=== PATIENT | male | born 1950 | race Caucasian/White ===

== ENCOUNTER 2025-01-10 06:28 | Day surgery (SDC) | payer OTHER ==
[~2025-01-10] VITALS: Ht 154.9 cm; Wt 46.4 kg
[~2025-01-10 06:28] MED LIST: ASPI-1444 PO; KETO-100 OU
[2025-01-10] MEDS ORDERED: LIDOCAINE 4% 50 ML SOLUTION TP ONE (06:29)
[2025-01-10] MEDS ORDERED: LIDOCAINE 2% 11 ML JELLY TP ONE (06:29)
[2025-01-10] MEDS ORDERED: ALBUTEROL SULFATE 2.5 MG/0.5 ML NEB SOLUTION NEB ONE (06:29)
[2025-01-10] MEDS ORDERED: BENZOCAINE 20% 50 MCG/SPRAY 57 GM TP ONE (06:29)
[2025-01-10] MEDS ORDERED: SODIUM CHLORIDE 0.9% 1,000 ML ONE (06:46)
[2025-01-10 08:05] LABS: GLUCOMETER DEV NAME(LOC) SDS.; GLUCOSE,POINT OF CARE 143 MG/DL (70-110)
[2025-01-10] MEDS ORDERED: FentaNYL CITRATE PF 100 MCG/2 ML VIAL ONE (08:07)
[2025-01-10] MEDS ORDERED: MIDAZOLAM HCL 2 MG/2 ML VIAL ONE (08:07)
[2025-01-10] MEDS: SODIUM CHLORIDE 0.9% 1,000 ML IV ONE (08:11)
[2025-01-10 09:07] VITALS: O2SAT 100
[2025-01-10] MEDS ORDERED: MethylPREDNISolone SOD SUCC 125 MG/2 ML VIAL ONE (09:53)
[2025-01-10] MEDS: MethylPREDNISolone SOD SUCC 125 MG/2 ML VIAL IVP ONE (09:59)
[2025-01-10] MEDS ORDERED: ALBU18HF12 IH (10:40)
[2025-01-10] MEDS ORDERED: MONT-35 PO (10:40)
[2025-01-10] MEDS ORDERED: SEMA14TA2 PO (10:40)
[2025-01-10] MEDS ORDERED: AMLO-258 PO (10:40)
[2025-01-10] MEDS ORDERED: DOXY50 PO (10:40)
[2025-01-10] MEDS ORDERED: EVOL140P3 SQ (10:40)
[2025-01-10] MEDS ORDERED: ONDA-104 PO (10:40)
[2025-01-10] MEDS ORDERED: TAMS0.4C94 PO (10:40)
[2025-01-10] MEDS ORDERED: CLOB60CR12 TP (10:40)
[2025-01-10] MEDS ORDERED: DAPA10TA PO (10:40)
[2025-01-10] MEDS ORDERED: FLUT12AE3 IH (10:40)
[2025-01-10] MEDS ORDERED: CARV25 PO (10:40)
[2025-01-10] MEDS ORDERED: AZEL137S8 NASAL (10:40)
[2025-01-10] MEDS ORDERED: ICOS1CAP PO (10:40)
[2025-01-10] MEDS ORDERED: LINA290C PO (10:40)
[2025-01-10] MEDS ORDERED: ROSU20TA98 PO (10:40)
== END 2025-01-10 15:10 | disposition home or self-care (01) ==
LOC: SURGERY 06:28
PROVIDERS: ATTEND Internal Medicine Critical Care Medicine
DX: R05.3 Chronic cough (principal); R04.2 Hemoptysis; J38.4 Edema of larynx; B37.0 Candidal stomatitis; I10 Essential (primary) hypertension; E11.9 Type 2 diabetes mellitus without complications; Z79.899 Other long term (current) drug therapy; Z98.890 Other specified postprocedural states
CPT/HCPCS: 31623; 82962; 87206; 87101; 87220; 87070; 87186; 31624; 71045; 87015; J3010; J2250; J2919; J7030; 88108; J7613; Z7610